=== PATIENT | female | born 1985 | race African-American/Black ===

== ENCOUNTER 2024-02-14 12:53 | Day surgery (SDC) | payer OTHER ==
[2024-02-14] MEDS: FERRIC CARBOXYMALTOSE 750 MG in SODIUM CHLORIDE 250 ML IVPB ONE (13:17)
[2024-02-14 16:25] VITALS: RESP 20; TEMP 98.2
[2024-02-14 16:32] VITALS: BP 129/91; PULSE 68
== END 2024-02-14 14:20 | disposition home or self-care (01) ==
LOC: JONCNONCHE 12:53 → J7W 13:01 → JONCNONCHE 14:20
PROVIDERS: ATTEND Internal Medicine Hematology & Oncology
PROC: 3E033GC Introduction of Other Therapeutic Substance into Peripheral Vein, Percutaneous Approach (ICD-10-PCS; principal; 2024-02-14)
DX: D50.9 Iron deficiency anemia, unspecified (principal)
CPT/HCPCS: 96365; J1439

== ENCOUNTER 2024-02-21 16:55 | Day surgery (SDC) | payer OTHER ==
[2024-02-21] MEDS: FERRIC CARBOXYMALTOSE 750 MG in SODIUM CHLORIDE 250 ML IVPB ONE (17:08)
[2024-02-21 17:11] VITALS: RESP 20
[2024-02-21 17:41] VITALS: TEMP 98.9
[2024-02-21 17:46] VITALS: BP 125/80; PULSE 99
== END 2024-02-21 17:53 | disposition home or self-care (01) ==
LOC: JONCNONCHE 16:55 → J7W 16:55 → JONCNONCHE 17:53
PROVIDERS: ATTEND Internal Medicine Hematology & Oncology
PROC: 3E033GC Introduction of Other Therapeutic Substance into Peripheral Vein, Percutaneous Approach (ICD-10-PCS; principal; 2024-02-21)
DX: D50.9 Iron deficiency anemia, unspecified (principal)
CPT/HCPCS: 96365; J1439